=== PATIENT | male | born 1955 | race Hispanic/Latino ===

== ENCOUNTER 2017-11-13 09:04 | Inpatient (IN) | payer OTHER ==
[~2017-11-13] VITALS: Ht 160 cm; Wt 88.4 kg
[2017-11-13] MEDS ORDERED: NITROGLYCERIN 0.4 MG SL TAB SL ONE (09:39)
[2017-11-13] MEDS ORDERED: ASPIRIN 325 MG TABLET ONE (09:39)
[2017-11-13 09:44] LABS: BASOPHILS % (AUTO) 0.8 % (0.0-5.0); EOSINOPHILS % (AUTO) 5.5 % (0.0-8.0); HEMATOCRIT 41.8 % (42-54); MEAN CORPUSCULAR HEMOGLOBIN 30.1 pg (27.0-33.0); MEAN CORPUSCULAR HGB CONC 34.3 g/dL (32.0-36.0); MEAN CORPUSCULAR VOLUME 87.8 fL (79-99); MONOCYTES % (AUTO) 6.8 % (3.0-13.0); NEUTROPHILS % (AUTO) 63.9 % (40.0-77.0); NUCLEATED RED BLOOD CELLS 0.2 % (0.0-0.19); PLATELET COUNT (AUTO) 161 K/uL (130-400); RED BLOOD CELL COUNT(AUTO) 4.76 MIL/uL (4.50-6.20); RED CELL DISTRIBUTION WIDTH 13.3 % (11.0-15.5); WHITE BLOOD COUNT (AUTO) 5.4 K/uL (4.8-10.8)
[2017-11-13 09:51] LABS: POTASSIUM 4.1 mmol/L (3.5-5.1)
[2017-11-13 09:56] LABS: ALBUMIN 4.2 g/dL (3.5-5.0); BILIRUBIN,TOTAL 0.7 mg/dL (0.2-1.0); TOTAL PROTEIN, SERUM 7.2 g/dL (6.0-8.3)
[2017-11-13 10:10] LABS: CREATINE KINASE MB 1.1 ng/mL (0.5-3.6); TROPONIN I 0.25 ng/mL (0.00-0.06)
[2017-11-13 10:15] LABS: APPEARANCE,URINE Clear (CLEAR); BILIRUBIN,URINE Negative (NEGATIVE); COLOR,URINE Yellow (YELLOW); GLUCOSE, URINE (UA) Negative (NEGATIVE); KETONES,URINE Negative (NEGATIVE); LEUKOCYTE ESTERASE ,URINE Negative (NEGATIVE); NITRATE,URINE Negative (NEGATIVE); OCCULT BLOOD,URINE Negative (NEGATIVE); PH,URINE 8.5 (5.0-8.0); PROTEIN,URINE Negative (NEGATIVE); UROBILINOGEN,URINE 0.2 mg/dL (0.2-1.0)
[2017-11-13 10:30] LABS: BACTERIA,URINE None Seen /HPF (None Seen); RBC,URINE None Seen /HPF (0-1); SQUAMOUS EPITHELIAL CELL,UR 0-2 /LPF (0-2); WBC,URINE None Seen /HPF (0-1)
[2017-11-13] MEDS ORDERED: METOPROLOL TARTRATE 1 MG/ML 5ML VIAL IV ONE (11:21)
[2017-11-13] MEDS ORDERED: ENOXAPARIN SODIUM 100 MG/1 ML SQ ONE (12:11)
[2017-11-13] MEDS ORDERED: ACETAMINOPHEN EXTRA STRENGTH 500 MG TABLET ONE (15:59)
[2017-11-13] MEDS ORDERED: SODIUM CHLORIDE 0.9% 10 ML VIAL IVP PRN (17:15)
[2017-11-13 18:09] LABS: CREATINE KINASE MB 0.6 ng/mL (0.5-3.6); TROPONIN I 0.32 ng/mL (0.00-0.06)
[2017-11-13] MEDS ORDERED: NITROGLYCERIN 50 MG/D5% WATER 1 BOT ONE (20:59)
[2017-11-13] MEDS ORDERED: ENOXAPARIN SODIUM 60 MG/0.6 ML SQ SCH (21:00)
[2017-11-13] MEDS: METOPROLOL TARTRATE 25 MG TAB PO SCH (21:00)
[2017-11-13 21:04] LABS: PARTIAL THROMBOPLASTIN TIME 30.8 SEC (26.3-35.5); PROTHROMBIN TIME 10.5 SEC (9.6-11.6)
[2017-11-13] MEDS ORDERED: HEPARIN 25000 UNITS/250 ML D5W 250 ML IV ONE (21:31)
[2017-11-13] MEDS ORDERED: METOPROLOL TARTRATE 25 MG TAB ONE (21:32)
[2017-11-13] MEDS ORDERED: ZOLPIDEM TARTRATE 5 MG TAB ONE (21:32)
[2017-11-13 22:52] LABS: CREATINE KINASE MB < 0.5 ng/mL (0.5-3.6); CREATINE KINASE, TOTAL 113 U/L (21-232); MYOGLOBIN 38 ng/mL (10-92); TROPONIN I 0.34 ng/mL (0.00-0.06)
[2017-11-13 23:42] VITALS: BP 129/74
[2017-11-14] VITALS (24 sets, daily range): BP systolic 104–138; BP diastolic 66–95
[2017-11-14 03:55] LABS: MEAN CORPUSCULAR HEMOGLOBIN 30.1 pg (27.0-33.0); MEAN CORPUSCULAR HGB CONC 34.4 g/dL (32.0-36.0); MEAN CORPUSCULAR VOLUME 87.5 fL (79-99); PLATELET COUNT (AUTO) 174 K/uL (130-400); RED BLOOD CELL COUNT(AUTO) 4.68 MIL/uL (4.50-6.20); RED CELL DISTRIBUTION WIDTH 13.6 % (11.0-15.5); WHITE BLOOD COUNT (AUTO) 5.5 K/uL (4.8-10.8)
[2017-11-14 04:32] LABS: ALBUMIN 3.6 g/dL (3.5-5.0); BILIRUBIN,TOTAL 0.6 mg/dL (0.2-1.0); POTASSIUM 3.5 mmol/L (3.5-5.1); TOTAL PROTEIN, SERUM 6.7 g/dL (6.0-8.3)
[2017-11-14 05:46] LABS: BASOPHILS % (MANUAL) 2 % (0-2); EOSINOPHILS % (MANUAL) 9 % (1-6); LYMPHOCYTES % (MANUAL) 31 % (22-44); MAN.DIFF COMMENT-IMPRESSION MANUAL DIFFERENTIAL; MONOCYTES % (MANUAL) 7 % (2-9); PLATELET MORPHOLOGY COMMENT ADEQUATE; REACTIVE LYMPHOCYTES 6 % (0-0); SEGMENTED NEUTROPHILS % 45 % (40-70)
[2017-11-14 05:53] LABS: INR 1.01 (0.85-1.15); PARTIAL THROMBOPLASTIN TIME 39.1 SEC (26.3-35.5); PROTHROMBIN TIME 10.6 SEC (9.6-11.6)
[2017-11-14] MEDS ORDERED: BIVALIRUDIN 250 MG/VIAL IV ONE (07:08)
[2017-11-14] MEDS ORDERED: IOPAMIDOL-370 100 ML VIAL IV ONE (07:08)
[2017-11-14] MEDS ORDERED: IOPAMIDOL-370 75 ML VIAL IV ONE ×2 (07:08→07:56)
[2017-11-14] MEDS ORDERED: ISOVUE-370 50ML VIAL IV ONE (07:08)
[2017-11-14] MEDS ORDERED: NITROGLYCERIN 50 MG/D5% WATER 1 BOT ONE (07:09)
[2017-11-14] MEDS ORDERED: LIDOCAINE HCL 2% 20ML ONE (07:09)
[2017-11-14] MEDS ORDERED: LABETALOL 20 MG/4 ML DISP.SYRIN IV ONE (08:08)
[2017-11-14] MEDS ORDERED: SODIUM CHLORIDE 0.9% 1000ML 1,000 ML IV SCH (08:12)
[2017-11-14] MEDS ORDERED: GLUCAGON 1MG KIT 1 MG ML IM PRN (08:15)
[2017-11-14] MEDS ORDERED: DEXTROSE 50%-WATER 50 ML DISP.SYRIN IV PRN (08:15)
[2017-11-14] MEDS ORDERED: NITROGLYCERIN 50 MG/D5% WATER 250 BOT IV PRN (08:30)
[2017-11-14] MEDS ORDERED: ACETAMINOPHEN 325 MG TAB PO PRN ×2 (12:00)
[2017-11-14] MEDS: METOPROLOL TARTRATE 25 MG TAB PO SCH ×2 (12:10→21:40)
[2017-11-14] MEDS: ACETAMINOPHEN 325 MG TAB PO PRN (12:10)
[2017-11-14] MEDS ORDERED: LOSA1TAB54 PO (19:51)
[2017-11-14] MEDS: ZOLPIDEM TARTRATE 5 MG TAB PO PRN (22:09)
[2017-11-15] VITALS (16 sets, daily range): BP systolic 104–152; BP diastolic 39–96
[2017-11-15] MEDS: METOPROLOL TARTRATE 25 MG TAB PO SCH ×2 (08:20→20:49)
[2017-11-15] MEDS: ENOXAPARIN SODIUM 30 MG/0.3 ML SQ SCH (08:37)
[2017-11-15] MEDS ORDERED: CEFUROXIME SODIUM 1.5 GM VIAL IVP SCH (09:15)
[2017-11-15] MEDS: ASPIRIN 81 MG EC TAB PO SCH (20:49)
[2017-11-15] MEDS: ATORVASTATIN CALCIUM 40 MG TABLET PO SCH (20:49)
[2017-11-15] MEDS: ZOLPIDEM TARTRATE 5 MG TAB PO PRN (21:45)
[2017-11-16 03:37] VITALS: BP 150/64
[2017-11-16 04:58] LABS: HEMOGLOBIN A1C 5.5 % (4.0-6.0)
[2017-11-16 07:20] VITALS: BP 131/78
[2017-11-16] MEDS: METOPROLOL TARTRATE 25 MG TAB PO SCH ×2 (08:59→20:20)
[2017-11-16] MEDS: ASPIRIN 81 MG EC TAB PO SCH (08:59)
[2017-11-16] MEDS: ACETAMINOPHEN 325 MG TAB PO PRN (09:00)
[2017-11-16] MEDS: ENOXAPARIN SODIUM 30 MG/0.3 ML SQ SCH (09:00)
[2017-11-16] MEDS: NITROGLYCERIN 1GM/1 INCH PACKET TD SCH ×2 (10:38→17:38)
[2017-11-16 11:25] VITALS: BP 120/68
[2017-11-16 16:20] VITALS: BP 133/85
[2017-11-16 20:07] VITALS: BP 136/74
[2017-11-16] MEDS: ATORVASTATIN CALCIUM 40 MG TABLET PO SCH (20:20)
[2017-11-16] MEDS ORDERED: LORAZEPAM 1 MG TABLET ONE (22:07)
[2017-11-16] MEDS ORDERED: LORAZEPAM 1 MG TABLET PO PRN (22:15)
[2017-11-16 23:46] VITALS: BP 124/74
[2017-11-17] VITALS (10 sets, daily range): BP systolic 118–158; BP diastolic 63–91
[2017-11-17] MEDS: NITROGLYCERIN 1GM/1 INCH PACKET TD SCH ×3 (03:20→18:20)
[2017-11-17 04:11] LABS: CHOLESTEROL 143 mg/dL (<200); HDL CHOLESTEROL 34 mg/dL (29-71); LDL DIRECT 86 mg/dL (0-99); TRIGLYCERIDES 152 mg/dL (30-200)
[2017-11-17] MEDS: ASPIRIN 81 MG EC TAB PO SCH (07:15)
[2017-11-17] MEDS: ENOXAPARIN SODIUM 30 MG/0.3 ML SQ SCH (07:15)
[2017-11-17] MEDS: METOPROLOL TARTRATE 25 MG TAB PO SCH ×2 (07:15→19:22)
[2017-11-17] MEDS ORDERED: PANTOPRAZOLE SODIUM 40 MG TABLET.DR PO SCH (10:30)
[2017-11-17] MEDS: ATORVASTATIN CALCIUM 40 MG TABLET PO SCH (19:22)
[2017-11-18] VITALS (20 sets, daily range): BP systolic 101–157; BP diastolic 52–83
[2017-11-18] MEDS: NITROGLYCERIN 1GM/1 INCH PACKET TD SCH (02:00)
[2017-11-18] MEDS ORDERED: HEPARIN SODIUM 1000UNIT/ML 10ML VIAL ONE ×3 (05:54→07:37)
[2017-11-18] MEDS ORDERED: OCTYL 2-CYANOACRYLATE 1 EACH TP ONE (05:54)
[2017-11-18] MEDS ORDERED: PAPAVERINE HCL 30 MG/ML 2ML VIAL ONE (05:54)
[2017-11-18] MEDS ORDERED: BACITRACIN 50,000 UNIT VIAL ONE (05:54)
[2017-11-18] MEDS: METOPROLOL TARTRATE 25 MG TAB PO SCH (06:30)
[2017-11-18] MEDS ORDERED: NITROGLYCERIN 50 MG/D5% WATER 1 BOT ONE (06:34)
[2017-11-18] MEDS ORDERED: CEFUROXIME SODIUM 1.5 GM VIAL ONE (06:35)
[2017-11-18] MEDS ORDERED: SODIUM CHLORIDE 0.9% 1000ML 1,000 ML IV ONE (06:35)
[2017-11-18] MEDS ORDERED: THROMBIN-JMI 5000 UNIT/VIAL TP ONE (07:20)
[2017-11-18] MEDS ORDERED: LIDOCAINE PF 2% 5ML ABBOJECT ONE (07:37)
[2017-11-18] MEDS ORDERED: GLYCOPYRROLATE 0.2 MG/ML 5 ML VIAL ONE (07:37)
[2017-11-18] MEDS ORDERED: PROPOFOL 10 MG/ML 20ML VIAL IV ONE (07:37)
[2017-11-18] MEDS ORDERED: NOREPINEPHRINE BITARTRATE 1 MG/1 ML ML IV ONE (07:37)
[2017-11-18] MEDS ORDERED: FENTANYL CITRATE PF 50 MCG/1 ML 20ML VIAL IJ ONE (07:37)
[2017-11-18] MEDS ORDERED: MILRINONE-D5W 20 MG/100 ML 100 ML IV ONE (07:37)
[2017-11-18] MEDS ORDERED: EPINEPHRINE 1 MG/ML AMPULE ONE (07:37)
[2017-11-18] MEDS ORDERED: MIDAZOLAM HCL 1 MG/ML 5ML VIAL ONE (07:37)
[2017-11-18] MEDS ORDERED: PROTAMINE SULFATE 10 MG/ML 25ML VIAL IV ONE (07:37)
[2017-11-18] MEDS ORDERED: ROCURONIUM BROMIDE 10MG/1ML 5ML VL ONE (07:37)
[2017-11-18] MEDS ORDERED: AMIODARONE HCL 900MG/18ML IV ONE (07:37)
[2017-11-18] MEDS ORDERED: ESMOLOL HCL 10 MG/ML 10 ML VIAL ONE (07:37)
[2017-11-18] MEDS ORDERED: NEOSTIGMINE METHYLSULFATE 1MG/ML IV ONE (07:37)
[2017-11-18] MEDS ORDERED: AMINOCAPROIC ACID 250 MG/ML 20 ML VIAL IV ONE (07:37)
[2017-11-18 08:17] LABS: ABG BASE EXCESS -3.4 mmol/L (-2.0-3.0); ABG HCO3 20.7 mmol/L (21.0-28.0); ABG OXYGEN SATURATION 98.7 % (95.0-99.0); ABG PCO2 34 mmHg (35-48)
[2017-11-18] MEDS ORDERED: SODIUM BICARB 50MEQ 50ML VIAL ONE ×3 (08:42→15:37)
[2017-11-18] MEDS ORDERED: CEFUROXIME 1.5GM+NS 100ML 100 ML IV SCH ×2 (09:00→18:15)
[2017-11-18] MEDS ORDERED: WATER FOR INJECTION,STERILE 20 ML VIAL IJ SCH (09:00)
[2017-11-18] MEDS ORDERED: CEFUROXIME SODIUM 1.5 GM VIAL IVP SCH (09:15)
[2017-11-18 09:18] LABS: ABG BASE EXCESS 3.6 mmol/L (-2.0-3.0); ABG OXYGEN SATURATION 98.9 % (95.0-99.0); ABG PCO2 37 mmHg (35-48)
[2017-11-18] MEDS ORDERED: SODIUM CHLORIDE 0.9% 500ML 500 ML IV SCH (10:06)
[2017-11-18 10:11] LABS: ABG HCO3 23.5 mmol/L (21.0-28.0); ABG OXYGEN SATURATION 98.5 % (95.0-99.0); ABG PCO2 39 mmHg (35-48)
[2017-11-18] MEDS ORDERED: AMINOCAPROIC ACID 15,000 MG in SODIUM CHLORIDE 0.9% 250 ML IV SCH (10:15)
[2017-11-18] MEDS ORDERED: SODIUM BICARB 8.4% 50ML SYRINGE IV PRN (10:15)
[2017-11-18] MEDS ORDERED: ONDANSETRON HCL 4 MG/2 ML VIAL IV PRN (10:15)
[2017-11-18] MEDS ORDERED: NOREPINEPHRINE 4MG/NS 250ML 250 ML IV PRN (10:15)
[2017-11-18] MEDS ORDERED: ACETAMINOPHEN 650 MG SUPPOSITORY RC PRN (10:15)
[2017-11-18] MEDS ORDERED: DEXTROSE 50%-WATER 50 ML DISP.SYRIN IV PRN (10:15)
[2017-11-18] MEDS ORDERED: POTASSIUM PHOS 15 mMOL+NS250ML 250 ML IV PRN (10:15)
[2017-11-18] MEDS ORDERED: EPINEPHRINE 2 MG in SODIUM CHLORIDE 0.9% 250 ML IV PRN (10:15)
[2017-11-18] MEDS ORDERED: ACETAMINOPHEN 325 MG TAB PO PRN (10:15)
[2017-11-18] MEDS ORDERED: CALCIUM GLUCONATE 1 GM in SODIUM CHLORIDE 0.9% 50 ML IV PRN (10:15)
[2017-11-18] MEDS ORDERED: INSULIN REGULAR, HUMAN 3ML 100 UNIT in SODIUM CHLORIDE 0.9% 99 ML IV SCH ×2 (10:15)
[2017-11-18] MEDS ORDERED: NITROGLYCERIN 50 MG/D5% WATER 250 BOT IV SCH (10:15)
[2017-11-18] MEDS ORDERED: MORPHINE SULFATE 2 MG/ML 1ML SYG IV PRN (10:15)
[2017-11-18] MEDS ORDERED: ALBUMIN (HUMAN) 5% 250 ML IV PRN (10:15)
[2017-11-18] MEDS ORDERED: GLUCAGON 1MG KIT 1 MG ML IM PRN (10:15)
[2017-11-18] MEDS ORDERED: SODIUM CHLORIDE 0.9% 10 ML VIAL IVP PRN (10:15)
[2017-11-18] MEDS ORDERED: SODIUM CHLORIDE 0.9% 250 ML IV PRN (10:15)
[2017-11-18] MEDS ORDERED: SODIUM CHLORIDE 0.9% 1000ML 1,000 ML IV SCH (10:15)
[2017-11-18] MEDS ORDERED: MORPHINE SULFATE 4 MG/1ML SYG IV PRN (10:15)
[2017-11-18] MEDS ORDERED: PROPOFOL 1000 MG/100 ML 100 ML IV PRN (10:15)
[2017-11-18] MEDS ORDERED: NICARDIPINE HCL 100 MG in SODIUM CHLORIDE 0.9% 100 ML IV PRN (10:15)
[2017-11-18 11:13] LABS: HEMATOCRIT 38.6 % (42-54); MEAN CORPUSCULAR HEMOGLOBIN 30.9 pg (27.0-33.0); MEAN CORPUSCULAR HGB CONC 35.8 g/dL (32.0-36.0); MEAN CORPUSCULAR VOLUME 86.1 fL (79-99); PLATELET COUNT (AUTO) 153 K/uL (130-400); RED BLOOD CELL COUNT(AUTO) 4.48 MIL/uL (4.50-6.20); RED CELL DISTRIBUTION WIDTH 13.5 % (11.0-15.5); WHITE BLOOD COUNT (AUTO) 19.2 K/uL (4.8-10.8)
[2017-11-18 11:16] LABS: ABG BASE EXCESS -1.6 mmol/L (-2.0-3.0); ABG HCO3 21.8 mmol/L (21.0-28.0); ABG OXYGEN SATURATION 97.2 % (95.0-99.0); ABG PCO2 33 mmHg (35-48)
[2017-11-18 11:23] LABS: CREATININE 0.9 mg/dL (0.5-1.5); MAGNESIUM 1.4 mg/dL (1.80-2.40); PHOSPHORUS 3.7 mg/dL (2.5-4.9)
[2017-11-18] MEDS: MAGNESIUM 2GM PREMIX 50ML 50 ML IV PRN (12:16)
[2017-11-18] MEDS: POTASSIUM CHLORIDE 20MEQ/100ML 100 ML IV PRN (12:17)
[2017-11-18] MEDS ORDERED: SODIUM BICARB 50MEQ 50ML VIAL IV STA ×2 (12:29→15:37)
[2017-11-18 13:11] LABS: ABG BASE EXCESS 0.6 mmol/L (-2.0-3.0); ABG HCO3 25.5 mmol/L (21.0-28.0); ABG OXYGEN SATURATION 96.1 % (95.0-99.0); ABG PCO2 42 mmHg (35-48)
[2017-11-18 14:59] LABS: HEMATOCRIT 34.8 % (42-54); MEAN CORPUSCULAR HEMOGLOBIN 31.2 pg (27.0-33.0); MEAN CORPUSCULAR VOLUME 86.7 fL (79-99); PLATELET COUNT (AUTO) 181 K/uL (130-400); RED BLOOD CELL COUNT(AUTO) 4.02 MIL/uL (4.50-6.20); RED CELL DISTRIBUTION WIDTH 13.2 % (11.0-15.5); WHITE BLOOD COUNT (AUTO) 19.6 K/uL (4.8-10.8)
[2017-11-18 15:09] LABS: CREATININE 0.9 mg/dL (0.5-1.5); POTASSIUM 4.3 mmol/L (3.5-5.1)
[2017-11-18 15:10] LABS: ABG BASE EXCESS -2.2 mmol/L (-2.0-3.0); ABG HCO3 22.5 mmol/L (21.0-28.0); ABG PCO2 39 mmHg (35-48)
[2017-11-18 15:17] LABS: LYMPHOCYTES % (MANUAL) 11 % (22-44); MONOCYTES % (MANUAL) 1 % (2-9); REACTIVE LYMPHOCYTES 1 % (0-0); SEGMENTED NEUTROPHILS % 87 % (40-70)
[2017-11-18] MEDS: HYDROCODONE/ACETAMINOPHEN 5/325 MG TAB PO PRN ×2 (15:17→19:21)
[2017-11-18 15:18] LABS: PLATELET MORPHOLOGY COMMENT ADEQUATE
[2017-11-18] MEDS: CEFUROXIME SODIUM 1.5 GM VIAL IVP SCH (17:18)
[2017-11-18] MEDS: WATER FOR INJECTION,STERILE 20 ML VIAL IJ SCH (17:18)
[2017-11-19] VITALS (17 sets, daily range): BP systolic 97–150; BP diastolic 50–100
[2017-11-19] MEDS: HYDROCODONE/ACETAMINOPHEN 5/325 MG TAB PO PRN ×3 (01:38→20:29)
[2017-11-19 03:17] LABS: HEMATOCRIT 31.2 % (42-54); MEAN CORPUSCULAR HEMOGLOBIN 31.3 pg (27.0-33.0); MEAN CORPUSCULAR VOLUME 86.9 fL (79-99); PLATELET COUNT (AUTO) 124 K/uL (130-400); RED BLOOD CELL COUNT(AUTO) 3.59 MIL/uL (4.50-6.20); RED CELL DISTRIBUTION WIDTH 13.5 % (11.0-15.5); WHITE BLOOD COUNT (AUTO) 9.6 K/uL (4.8-10.8)
[2017-11-19 03:29] LABS: CREATININE 0.9 mg/dL (0.5-1.5); MAGNESIUM 1.8 mg/dL (1.80-2.40); PHOSPHORUS 3.2 mg/dL (2.5-4.9); POTASSIUM 3.5 mmol/L (3.5-5.1)
[2017-11-19] MEDS: POTASSIUM CHLORIDE 20MEQ/100ML 100 ML IV PRN ×2 (03:39→06:35)
[2017-11-19] MEDS: MAGNESIUM 2GM PREMIX 50ML 50 ML IV PRN (03:39)
[2017-11-19] MEDS: WATER FOR INJECTION,STERILE 20 ML VIAL IJ SCH (06:35)
[2017-11-19] MEDS: CEFUROXIME SODIUM 1.5 GM VIAL IVP SCH ×2 (06:35→17:21)
[2017-11-19] MEDS: LOSARTAN 50 MG TABLET PO SCH ×2 (08:30→09:00)
[2017-11-19] MEDS ORDERED: PANTOPRAZOLE 40 MG/VIAL IV SCH (09:00)
[2017-11-19] MEDS: ASPIRIN 81 MG EC TAB PO SCH ×2 (09:00→09:58)
[2017-11-19] MEDS: METOPROLOL TARTRATE 25 MG TAB PO SCH ×2 (09:00→09:59)
[2017-11-19] MEDS: ATORVASTATIN CALCIUM 20 MG TABLET PO SCH (20:30)
[2017-11-20] MEDS: METOPROLOL TARTRATE 25 MG TAB PO SCH ×3 (00:11→20:15)
[2017-11-20] MEDS: HYDROCODONE/ACETAMINOPHEN 5/325 MG TAB PO PRN ×5 (03:07→22:51)
[2017-11-20 03:48] VITALS: BP 137/77
[2017-11-20 07:43] VITALS: BP 123/69
[2017-11-20] MEDS: ASPIRIN 81 MG EC TAB PO SCH (08:17)
[2017-11-20] MEDS: FUROSEMIDE 20 MG TABLET PO SCH (08:17)
[2017-11-20] MEDS: LOSARTAN 50 MG TABLET PO SCH (09:05)
[2017-11-20 09:11] VITALS: BP 111/67
[2017-11-20] MEDS: PANTOPRAZOLE SODIUM 40 MG TABLET.DR PO SCH (09:11)
[2017-11-20 11:04] VITALS: BP 125/69
[2017-11-20 16:00] VITALS: BP 131/72
[2017-11-20 19:30] VITALS: BP 130/66
[2017-11-20] MEDS: ATORVASTATIN CALCIUM 20 MG TABLET PO SCH (20:15)
[2017-11-21 00:20] VITALS: BP 118/79
[2017-11-21 04:02] VITALS: BP 117/66
[2017-11-21 04:31] LABS: HEMATOCRIT 28.1 % (42-54); MEAN CORPUSCULAR HEMOGLOBIN 31.5 pg (27.0-33.0); MEAN CORPUSCULAR VOLUME 87.4 fL (79-99); PLATELET COUNT (AUTO) 125 K/uL (130-400); RED BLOOD CELL COUNT(AUTO) 3.22 MIL/uL (4.50-6.20); RED CELL DISTRIBUTION WIDTH 13.1 % (11.0-15.5); WHITE BLOOD COUNT (AUTO) 8.4 K/uL (4.8-10.8)
[2017-11-21 04:52] LABS: CREATININE 0.8 mg/dL (0.5-1.5); POTASSIUM 4.2 mmol/L (3.5-5.1)
[2017-11-21 07:37] VITALS: BP 107/55
[2017-11-21] MEDS: PANTOPRAZOLE SODIUM 40 MG TABLET.DR PO SCH (07:38)
[2017-11-21] MEDS: LOSARTAN 50 MG TABLET PO SCH (09:37)
[2017-11-21] MEDS: ASPIRIN 81 MG EC TAB PO SCH (09:37)
[2017-11-21] MEDS: METOPROLOL TARTRATE 25 MG TAB PO SCH (09:37)
[2017-11-21] MEDS: FUROSEMIDE 20 MG TABLET PO SCH (09:38)
[2017-11-21] MEDS: HYDROCODONE/ACETAMINOPHEN 5/325 MG TAB PO PRN (13:43)
[2017-11-21 16:07] VITALS: BP 104/59
== END 2017-11-21 19:00 | disposition home or self-care (01) | DRG 233 ==
LOC: EDH 09:04 → EDHIP 09:05 → UNDOADMIN 11:13 → 2AH 19:28 → 2CH 11-14 09:05 → 2AH 11-16 17:19 → 2CV 11-18 08:53 → 2CH 11-19 05:35 → 2DH 11-19 18:41
PROVIDERS: ADMIT Internal Medicine; ATTEND Internal Medicine
PROC: 4A023N7 Measurement of Cardiac Sampling and Pressure, Left Heart, Percutaneous Approach (ICD-10-PCS; 2017-11-14)
PROC: B2111ZZ Fluoroscopy of Multiple Coronary Arteries using Low Osmolar Contrast (ICD-10-PCS; 2017-11-14)
PROC: B2151ZZ Fluoroscopy of Left Heart using Low Osmolar Contrast (ICD-10-PCS; 2017-11-14)
PROC: 06BQ4ZZ Excision of Left Saphenous Vein, Percutaneous Endoscopic Approach (ICD-10-PCS; 2017-11-18)
PROC: 02100Z9 Bypass Coronary Artery, One Artery from Left Internal Mammary, Open Approach (ICD-10-PCS; principal; 2017-11-18 07:51)
PROC: 021109W Bypass Coronary Artery, Two Arteries from Aorta with Autologous Venous Tissue, Open Approach (ICD-10-PCS; 2017-11-18 07:51)
DX: I21.4 Non-ST elevation (NSTEMI) myocardial infarction (principal); J96.00 Acute respiratory failure, unspecified whether with hypoxia or hypercapnia; I16.1 Hypertensive emergency; J98.11 Atelectasis; Z68.34 Body mass index [BMI] 34.0-34.9, adult; I73.9 Peripheral vascular disease, unspecified; R20.2 Paresthesia of skin; F41.9 Anxiety disorder, unspecified; G47.00 Insomnia, unspecified; E66.9 Obesity, unspecified; E78.5 Hyperlipidemia, unspecified; I25.110 Atherosclerotic heart disease of native coronary artery with unstable angina pectoris; I10 Essential (primary) hypertension; Z90.49 Acquired absence of other specified parts of digestive tract; Z82.49 Family history of ischemic heart disease and other diseases of the circulatory system; Z79.899 Other long term (current) drug therapy; Z79.82 Long term (current) use of aspirin
CPT/HCPCS: 36415; 36600; 70450; 71045; 80048; 80053; 80061; 81001; 82330; 82435; 82550; 82553; 82803; 82947; 82948; 83036; 83605; 83735; 83874; 84100; 84132; 84295; 84484; 85018; 85025; 85027; 85347; 85610; 85730; 86850; 86900; 86901; 86922; 93005; 93458; 93880; 94002; 94010; 94150; 99291; A4218; A7048; C1760; C1894; C9113; J0171; J0282; J0583; J0697; J1644; J1650; J1815; J2001; J2250; J2260; J2440; J2704; J2710; J2720; J3010; J3475; J3480; J3490; J7030; J7040; P9045; Q9967

== ENCOUNTER 2017-12-13 13:24 | Emergency (ER) | payer OTHER ==
[~2017-12-13 13:24] MED LIST: LOSA1TAB54 PO
[2017-12-13 14:14] LABS: BASOPHILS % (AUTO) 0.4 % (0.0-5.0); EOSINOPHILS % (AUTO) 1.4 % (0.0-8.0); HEMATOCRIT 37.2 % (42-54); LYMPHOCYTES % (AUTO) 29.8 % (21.0-51.0); MEAN CORPUSCULAR HEMOGLOBIN 29.4 pg (27.0-33.0); MEAN CORPUSCULAR HGB CONC 34.5 g/dL (32.0-36.0); MEAN CORPUSCULAR VOLUME 85.3 fL (79-99); NEUTROPHILS % (AUTO) 58.4 % (40.0-77.0); PLATELET COUNT (AUTO) 171 K/uL (130-400); RED BLOOD CELL COUNT(AUTO) 4.36 MIL/uL (4.50-6.20); RED CELL DISTRIBUTION WIDTH 14.5 % (11.0-15.5); WHITE BLOOD COUNT (AUTO) 5.9 K/uL (4.8-10.8)
[2017-12-13 14:21] LABS: CARBON DIOXIDE 30 mmol/L (21-32); CHLORIDE 105 mmol/L (101-111); CREATININE 0.9 mg/dL (0.5-1.5); GLOMERULAR FILTR. RATE CALC 91 mL/min (>60); GLUCOSE,RANDOM 93 mg/dL (70-105); POTASSIUM 3.8 mmol/L (3.5-5.1); SODIUM SERUM 144 mmol/L (136-145); UREA NITROGEN, BLOOD 12 mg/dL (7-18)
[2017-12-13 14:30] LABS: PARTIAL THROMBOPLASTIN TIME 27.5 SEC (26.3-35.5); PROTHROMBIN TIME 10.5 SEC (9.6-11.6)
[2017-12-13 14:35] LABS: ALANINE AMINOTRANSFERASE 31 U/L (12-78); ASPARTATE AMINOTRANSFERASE 18 U/L (10-37); BILIRUBIN,TOTAL 0.6 mg/dL (0.2-1.0); CREATINE KINASE MB < 0.5 ng/mL (0.5-3.6); CREATINE KINASE, TOTAL 40 U/L (21-232); TOTAL PROTEIN, SERUM 7.6 g/dL (6.0-8.3)
== END 2017-12-13 15:52 | disposition home or self-care (01) ==
LOC: EDH 13:24
DX: I48.0 Paroxysmal atrial fibrillation (principal); I10 Essential (primary) hypertension; Z98.62 Peripheral vascular angioplasty status
CPT/HCPCS: 36415; 71045; 80053; 82550; 82553; 83880; 84484; 85025; 85610; 85730; 93005

== ENCOUNTER 2019-07-24 19:16 | Emergency (ER) | payer BC ==
[2019-07-24 20:03] LABS: BASOPHILS % (AUTO) 0.5 % (0.0-5.0); EOSINOPHILS % (AUTO) 1.4 % (0.0-8.0); HEMATOCRIT 42.5 % (42-54); LYMPHOCYTES % (AUTO) 19.4 % (21.0-51.0); MEAN CORPUSCULAR HEMOGLOBIN 31.2 pg (27.0-33.0); MEAN CORPUSCULAR HGB CONC 35.6 g/dL (32.0-36.0); MEAN CORPUSCULAR VOLUME 87.7 fL (79-99); MONOCYTES % (AUTO) 7.1 % (3.0-13.0); NEUTROPHILS % (AUTO) 71.6 % (40.0-77.0); PLATELET COUNT (AUTO) 159 K/uL (130-400); RED BLOOD CELL COUNT(AUTO) 4.85 MIL/uL (4.50-6.20); RED CELL DISTRIBUTION WIDTH 12.8 % (11.0-15.5); WHITE BLOOD COUNT (AUTO) 7.1 K/uL (4.8-10.8)
[2019-07-24 20:13] LABS: CREATININE 0.8 mg/dL (0.5-1.5); POTASSIUM 3.7 mmol/L (3.5-5.1)
[2019-07-24 20:18] LABS: ALBUMIN 4.4 g/dL (3.5-5.0); BILIRUBIN,TOTAL 0.4 mg/dL (0.2-1.0); TOTAL PROTEIN, SERUM 7.9 g/dL (6.0-8.3)
[2019-07-24] MEDS ORDERED: HYDRALAZINE HCL 20 MG/ML VIAL ONE (20:18)
[2019-07-24] MEDS ORDERED: LOSARTAN 50 MG TABLET ONE (20:18)
[2019-07-24] MEDS ORDERED: MORPHINE SULFATE 4 MG/1ML SYG ONE (20:36)
[2019-07-24] MEDS ORDERED: CEFTRIAXONE SODIUM 1 GM ONE (21:23)
[2019-07-24] MEDS ORDERED: HYDROMORPHONE 1 MG/1 ML AMP ONE (21:23)
[2019-07-24] MEDS ORDERED: SODIUM CHLORIDE 0.9% 50 ML IV ONE (21:24)
[2019-07-24] MEDS ORDERED: LABETALOL 20 MG/4 ML DISP.SYRIN IV ONE (22:15)
== END 2019-07-24 22:47 | disposition home or self-care (01) ==
LOC: EDH 19:16
DX: K04.7 Periapical abscess without sinus (principal); I10 Essential (primary) hypertension; K02.9 Dental caries, unspecified; I25.10 Atherosclerotic heart disease of native coronary artery without angina pectoris; E78.5 Hyperlipidemia, unspecified; Z90.49 Acquired absence of other specified parts of digestive tract; Z95.1 Presence of aortocoronary bypass graft
CPT/HCPCS: 36415; 80053; 84484; 85025; 93005; 96374; 96375; 96376; 99285; J0360; J0696; J1170; J2270

== ENCOUNTER → 2023-07-16 | Outpatient (CLI) | payer BC ==
[2023-07-16 12:19] LABS: BASOPHILS # (AUTO) 0.03 K/uL (0.00-0.20); BASOPHILS % (AUTO) 0.5 % (0.0-5.0); EOSINOPHILS # (AUTO) 0.22 K/uL (0.00-0.70); EOSINOPHILS % (AUTO) 3.7 % (0.0-8.0); HEMATOCRIT 43.8 % (42-54); IMMATURE GRANULOCYTE ABSOLUTE 0.02 K/uL (0-1); LYMPHOCYTES # (AUTO) 1.7 K/uL (1.0-4.8); LYMPHOCYTES % (AUTO) 29.1 % (21.0-51.0); MEAN CORPUSCULAR HEMOGLOBIN 28.7 pg (27.0-33.0); MEAN CORPUSCULAR HGB CONC 32.6 g/dL (32.0-36.0); MEAN CORPUSCULAR VOLUME 87.8 fL (79-99); MONOCYTES # (AUTO) 0.4 K/uL (0.1-1.0); MONOCYTES % (AUTO) 7.1 % (3.0-13.0); NEUTROPHILS # (AUTO) 3.5 K/uL (1.8-7.7); NEUTROPHILS % (AUTO) 59.3 % (40.0-77.0); PLATELET COUNT (AUTO) 182 K/uL (130-400); RED BLOOD CELL COUNT(AUTO) 4.99 MIL/uL (4.50-6.20); RED CELL DISTRIBUTION WIDTH 12.8 % (11.0-15.5); WHITE BLOOD COUNT (AUTO) 5.9 K/uL (4.8-10.8)
[2023-07-16 12:38] LABS: BILIRUBIN,TOTAL 0.5 mg/dL (0.2-1.0); CREATININE 0.8 mg/dL (0.5-1.5); TOTAL PROTEIN, SERUM 7.9 g/dL (6.0-8.3)
== END | disposition home or self-care (01) ==
LOC: LAB 08:04
PROVIDERS: ATTEND Internal Medicine Cardiovascular Disease
DX: I25.2 Old myocardial infarction (principal); E78.5 Hyperlipidemia, unspecified
CPT/HCPCS: 36415; 80053; 80061; 85025

== ENCOUNTER → 2023-07-19 | Outpatient (CLI) | payer BC, OTHER | END | disposition home or self-care (01) | LOC: RAH 10:02 | PROVIDERS: ATTEND Internal Medicine Cardiovascular Disease | DX: R91.8 Other nonspecific abnormal finding of lung field (principal); I25.810 Atherosclerosis of coronary artery bypass graft(s) without angina pectoris | CPT/HCPCS: 71250 ==

== ENCOUNTER 2024-10-24 23:39 | Emergency (ER) | payer BC, OTHER ==
[~2024-10-24] VITALS: Ht 162.6 cm; Wt 84.8 kg
--- NOTE | 2024-10-24 23:55 | EKG ---
[facility] Test Date: 2024-10-24 Test Time: 23:53:18 Pat Name: ABHAY DÍAZ Department: ED Patient [place]: [facility] [id number] Room: Gender: M History Professor: [id number] : 1955 Requested By: NATALIE BALLESTEROS Order Number: [id number] Reading MD: Thong Beltran Measurements Intervals [place] Rate: 94 P: 74 MI: 165 QRS: 18 QRSD: 108 T: 18 QT: 373 QTc: 468 Interpretive Statements Sinus rhythm Probable left atrial enlargement Inferior infarct, age indeterminate Compared to ECG 07/24/2019 19:49:12 Myocardial infarct finding now present Electronically Signed On 10-25-2024 17:00:47 HELPER COORDINATOR by Thong Beltran Please click the below link to view image of tracing.
[2024-10-25 00:29] LABS: BASOPHILS # (AUTO) 0.03 K/uL (0.00-0.20); BASOPHILS % (AUTO) 0.4 % (0.0-5.0); EOSINOPHILS # (AUTO) 0.18 K/uL (0.00-0.70); EOSINOPHILS % (AUTO) 2.5 % (0.0-8.0); IMMATURE GRANULOCYTE ABSOLUTE 0.03 K/uL (0-1); LYMPHOCYTES # (AUTO) 1.9 K/uL (1.0-4.8); LYMPHOCYTES % (AUTO) 25.9 % (21.0-51.0); MEAN CORPUSCULAR HEMOGLOBIN 30.1 pg (27.0-33.0); MEAN CORPUSCULAR HGB CONC 34.6 g/dL (32.0-36.0); MEAN CORPUSCULAR VOLUME 86.9 fL (79-99); MONOCYTES # (AUTO) 0.7 K/uL (0.1-1.0); NEUTROPHILS # (AUTO) 4.5 K/uL (1.8-7.7); NEUTROPHILS % (AUTO) 61.8 % (40.0-77.0); PLATELET COUNT (AUTO) 141 K/uL (130-400); RED BLOOD CELL COUNT(AUTO) 4.72 MIL/uL (4.50-6.20); RED CELL DISTRIBUTION WIDTH 12.6 % (11.0-15.5); WHITE BLOOD COUNT (AUTO) 7.2 K/uL (4.8-10.8)
[2024-10-25 00:35] LABS: CREATININE 0.9 mg/dL (0.5-1.3)
[2024-10-25 00:39] LABS: URIC ACID 4.8 mg/dL (2.6-7.2)
[2024-10-25] MEDS: NITROGLYCERIN 1GM OINT 1 INCH/1GM TD ONE ×2 (00:40→00:41)
[2024-10-25] MEDS: ketOROlac 15MG/ML VIAL (15MG/ML) IM ONE (00:40)
[2024-10-25] MEDS: hydrALAZine 20MG/ML VIAL IV ONE (00:40)
[2024-10-25] MEDS: Solu-medROL 125MG VIAL IVP ONE (00:40)
[2024-10-25] MEDS: hydrALAZine 20MG/ML VIAL ONE (00:41)
[2024-10-25 00:54] LABS: B-TYPE NATRIURETIC PEPTIDE 22 pg/mL (0-100)
[2024-10-25 01:01] VITALS: TEMP 98.1
--- NOTE | 2024-10-25 05:05 | ERN ---
General Chief Complaint: Hypertension Stated Complaint: PAIN, SWELLING LEFT 2ND FINGER Time Seen by MD: 23:43 History of Present Illness Initial Comments Mr. Webber is a very pleasant 69-year-old male history obesity and hypertension comes in chief complaint of left finger pain. Patient has a history of gout. Patient apparently also has a associated high blood pressure. Allergies: Coded Allergies: No Known Drug Allergies (Verified Allergy, Unknown, 11/13/17) Home Meds Reported Medications Losartan/Hydrochlorothiazide (Losartan-Hctz 100-25 mg Tab) 1 Each Tablet, 1 EACH PO DAILY for BP/HR CONTROL, TAB 11/14/17 Past Medical History Past Medical History: High Cholesterol, Hypertension Past Surgical History: Cholecystectomy, CABG ROS Dictation Constitutional: Negative for fever,chills, and weight loss Eyes: Negative for injury, pain,redness, and discharge ENT: Negative for injury,pain or swelling Cardiovascular: Negative for chest pain, palpitations, and edema Respiratory: Negative for shortness of breath, cough, and wheezing, Abdomen/GI: Negative for abdominal pain, nausea, vomiting, diarrhea, and constipation Back: Negative for injury and pain : Negative for injury, bleeding and discharge MS/Extremity: Positive for finger pain Skin: Negative for rash, and discoloration Neuro: Negative for headache, weakness, numbness, tingling, and seizure Psych: Negative for suicide ideation, homicidal ideation, and hallucinations Physical Exam Physical Exam Dictation General: awake, alert, NAD Head/Face: Normocephalic, atraumatic Eyes: PERRL, EOMI, vision at baseline ENT: oral cavity clear, TMs clear, no signs of infection Neck: Trachea midline, supple, no nuchal rigidity Cardiovascular: RRR, normal S1/S2, No MRGs, no JVD Respiratory: CTAB, no respiratory distress, No rales or wheezes Abdomen: Soft, non-tender, non-distended, normal bowel sounds, no guarding or rebound. Skin: Warm, dry, normal turgor, no rash MS/Extremity: Pulses equal, no cyanosis, neurovascular intact, FROM Neuro: COAx4, GCS 15, strength 5/5, CN 2-12 intact, normal cerebellar exam, normal gait, Psych: Normal behavior, mood, and affect normal Results Laboratory and Microbiology Lab and Micro Result Laboratory Tests Test 10/25/24 00:17 White Blood Count 7.2 K/uL (4.8-10.8) Red Blood Count 4.72 MIL/uL (4.50-6.20) Hemoglobin 14.2 g/dL (14.0-18.0) Hematocrit 41.0 % (42-54) L Mean Corpuscular Volume 86.9 fL (79-99) Mean Corpuscular Hemoglobin 30.1 pg (27.0-33.0) Mean Corpuscular Hemoglobin Concent 34.6 g/dL (32.0-36.0) Red Cell Distribution Width 12.6 % (11.0-15.5) Platelet Count 141 K/uL (130-400) Mean Platelet Volume 9.9 fL (7.5-10.5) Immature Granulocyte % (Auto) 0.4 % (0-1) Neutrophils (%) (Auto) 61.8 % (40.0-77.0) Lymphocytes (%) (Auto) 25.9 % (21.0-51.0) Monocytes (%) (Auto) 9.0 % (3.0-13.0) Eosinophils (%) (Auto) 2.5 % (0.0-8.0) Basophils (%) (Auto) 0.4 % (0.0-5.0) Neutrophils # (Auto) 4.5 K/uL (1.8-7.7) Lymphocytes # (Auto) 1.9 K/uL (1.0-4.8) Monocytes # (Auto) 0.7 K/uL (0.1-1.0) Eosinophils # (Auto) 0.18 K/uL (0.00-0.70) Basophils # (Auto) 0.03 K/uL (0.00-0.20) Absolute Immature Granulocyte (auto 0.03 K/uL (0-1) Nucleated Red Blood Cells 0.0 % (0.0-0.19) Sodium Level 141 mmol/L (136-145) Potassium Level 4.0 mmol/L (3.5-5.1) Chloride Level 103 mmol/L (101-111) Carbon Dioxide Level 31 mmol/L (21-32) Blood Urea Nitrogen 13 mg/dL (7-18) Creatinine 0.9 mg/dL (0.5-1.3) Glomerular Filtration Rate Calc 94 mL/min (>90) Random Glucose 91 mg/dL (70-105) Uric Acid 4.8 mg/dL (2.6-7.2) Total Calcium 9.4 mg/dL (8.5-10.1) Troponin I High Sensitivity 14 ng/L (4-75) B-Type Natriuretic Peptide 22 pg/mL (0-100) MDM Patient's imaging shows 1 cm crystallized structure likely representing gout. Patient was improving with steroids and NSAIDs. Patient was blood pressures improved. MDM: Differential diagnosis: Gout attack Rationale: Tests considered and ordered secondary to shared decision making include: Previous outside records reviewed: Old ER visits. Risk of complication and/or morbidity or mortality of patient management: None Medications-Per medication reconciliation Need for hospitalization: Patient does not meet criteria for hospitalization. Need for emergency major/minor surgery: No There are no social concerns with this patient. Prescription drug management Prescriptions will include symptomatic care Patient's prior external medical records from other ER visits were reviewed by me as indicated. Prior testing and results from previous visits were reviewed. Prior tests were taken into account with medical decision making and resource utilization, independent historian/historians were used to obtain complete medical history. I independently interpreted the test that were performed, results were reviewed by me and considered findings on radiology if ordered. Medical management and examination interpretation discussions were had by me with other qualified healthcare professionals as indicated for the patient's care. ED Course Orders Procedure Category Date Status Time 12 Lead Ekg Tracing- EKG 10/24/24 Complete Technical 23:48 B-Type Natriuretic LAB 10/24/24 Complete Peptide 23:48 Troponin I High LAB 10/24/24 Complete Sensitivity 23:48 Chest 1vw RAD 10/24/24 Taken 23:48 Cbc With Differential LAB 10/24/24 Complete 23:48 Basic Metabolic Panel LAB 10/24/24 Complete 23:48 Uric Acid LAB 10/24/24 Complete 23:48 Nitroglycerin 1gm PHA 10/24/24 Complete Oint (Nitroglycerin 1g 23:56 Hydralazine 20mg Inj PHA 10/24/24 Complete (Apresoline 20mg In 23:57 Methylprednisolone PHA 10/25/24 Complete Succ 125mg (Solu-Medr 00:30 Ketorolac PHA 10/25/24 Complete Tromethamine 15mg/Ml 00:30 Hydralazine 20mg Inj PHA 10/25/24 Complete (Apresoline 20mg In 01:00 Nitroglycerin 1gm PHA 10/25/24 Complete Oint (Nitroglycerin 1g 01:00 Finger(S) 2+Vws Lt RAD 10/25/24 Taken 00:36 Ct Chest W/O Contrast CT 10/25/24 Taken 01:31 Current Medications Medications (Trade) Dose Ordered Sig/Bharat Route PRN Reason Start Time Stop Time Status Last Admin Dose Admin Hydralazine HCl (APRESOLine 20MG INJ) 20 mg ONCE ONCE IV 10/25/24 01:00 10/25/24 01:01 DC 10/25/24 00:40 Hydralazine HCl (APRESOLine 20MG INJ) 20 mg STK-MED ONCE .ROUTE 10/24/24 23:57 10/24/24 23:57 DC Ketorolac Tromethamine (toRADol) 15 mg ONCE ONCE IM 10/25/24 00:30 10/25/24 00:31 DC 10/25/24 00:40 Methylprednisolone Sodium Succinate (Solu-medROL 125MG) 60 mg ONCE ONCE IVP 10/25/24 00:30 10/25/24 00:31 DC 10/25/24 00:40 Nitroglycerin (Nitroglycerin 1gm Oint) 0.5 inch ONCE ONCE TD 10/25/24 01:00 10/25/24 01:01 DC 10/25/24 00:40 Nitroglycerin (Nitroglycerin 1gm Oint) 1 inch STK-MED ONCE TD 10/24/24 23:56 10/24/24 23:57 DC Vital Signs Date Time Temp Pulse Resp B/P (MAP) Pulse Ox O2 Delivery O2 Flow Rate FiO2 10/25/24 04:35 86 16 130/54 96 Room Air* 0 21 10/25/24 01:01 98.1 95 18 156/82 96 Room Air* 0 21 10/25/24 00:20 98.1 95 22 239/82 97 Room Air* 0 21 10/24/24 23:41 98.8 96 20 227/111 98 Room Air DX & DISP Disposition: Discharge Departure Impression: Primary Impression: Gout attack Condition: Stable Scripts Prednisone (Prednisone) 10 Mg Tab.ds.pk 40 MG PO DAILY, #5 TAB Prov: NATALIE BALLESTEROS MD 10/25/24 Additional Instructions: Follow up with the primary care physician in the next 1-7 days for continuance of care. Please change her diet to avoid another gouty attack. Please limit meats and cheeses. Referrals: FADY COLLIER MD (PCP) NATALIE BALLESTEROS MD Oct 25, 2024 05:05
[2024-10-25] MEDS ORDERED: PRED10TA23 PO (05:13)
[2024-10-25 05:31] VITALS: BP 141/58; PULSE 81; RESP 18; O2SAT 97
--- NOTE | 2024-10-25 08:47 | HMCIMG ---
CT NONCONTRAST CHEST Comparison Study: none History: chest pain Technique: Helical CT of the chest without IV contrast at 5 mm collimation. Coronal and sagittal reformations also done. CT Dose Index (CTDI): 2.38 mGy Dose Length Product (DLP): 94.8 total mGy-cm Findings: The airway is intact. The trachea and major bronchi are unremarkable. The chest exam shows no pulmonary nodules or masses. Persistent elevation of the right hemidiaphragm with subsegmental atelectatic changes of the right lung base. No pulmonary infiltrates or mass lesions are seen. No pleural effusions are identified. There is no pneumothorax. There is no evidence of pneumomediastinum. The nonenhanced exam of the karl and mediastinum is unremarkable. No evidence of hilar enlargement is seen. The aorta shows no aneurysmal dilatation or significant atheromatous calcification. No significant brachiocephalic vascular abnormalities are seen. Status post CABG. Calcifications of the [place] coronary arteries. There is no pericardial effusion. The rib cage appears unremarkable. The soft tissues of the chest wall are unremarkable. The dorsal spine shows no significant abnormalities. IMPRESSION: Persistent elevation of the right hemidiaphragm with subsegmental atelectatic changes of the right lung base. This study was performed using dose reduction techniques to include automated exposure control and/or adjustment of the mA and/or kV according to patient size.
--- NOTE | 2024-10-25 09:30 | HMCIMG ---
Exam Type: FINGER(S) 2+VWS LT Clinical Information: swelling on index finger , concern for gout Comparison: None Findings and impression: No fractures or dislocations are seen but there is a soft tissue partially calcified lesion projecting lateral to the second PIP joint. 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
--- NOTE | 2024-10-25 09:31 | HMCIMG ---
Exam Type: CHEST 1VW Clinical Information: CT chest July 19, 2023 Comparison: None Findings: Persistent elevation of the right hemidiaphragm, unchanged since prior exam. There is cardiomegaly and there is status post median sternotomy. The lungs are clear of infiltrates. Impression: Clear lungs.
--- NOTE | 2024-10-26 13:38 | NUR ---
AFTER FAMILY CALLED TO INFORM ME THE MEDS WERE NOT AT [facility], I VERIFIED THAT THE PREDNISONE DID NOT GO THROUGH TO THE [facility]. SO I SPOKE TO THE PHARMACIST AND PLACED THE SCRIPT AGAIN. THE FAMILY WAS CALLED AND INFORMED THAT THE MEDICATION WAS BRING WORKED ON.
== END 2024-10-25 05:37 | disposition home or self-care (01) ==
LOC: EDH 23:39
DX: M10.9 Gout, unspecified (principal); E78.00 Pure hypercholesterolemia, unspecified; I10 Essential (primary) hypertension; E66.9 Obesity, unspecified; Z79.899 Other long term (current) drug therapy; Z90.49 Acquired absence of other specified parts of digestive tract; Z95.1 Presence of aortocoronary bypass graft; Z68.32 Body mass index [BMI] 32.0-32.9, adult
CPT/HCPCS: 99284; 71045; 84484; 84550; 80048; 83880; 85025; 36415; 93005; 96374; 71250; 96375; 73140; 96372; J2919; J0360; J1885